=== PATIENT | female | born 1930 | race Caucasian/White ===

== ENCOUNTER 2018-02-16 10:58 | Day surgery (SDC) | payer MEDICARE, BC ==
[2018-02-16] MEDS ORDERED: Phenylephrine 2.5% Ophth Soln 5 ML BOT ONE (11:27)
== END 2018-02-16 12:55 | disposition home or self-care (01) ==
LOC: SDC 10:58
PROVIDERS: ATTEND Ophthalmology
PROC: 085K3ZZ Destruction of Left Lens, Percutaneous Approach (ICD-10-PCS; principal; 2018-02-16)
PROC: 085J3ZZ Destruction of Right Lens, Percutaneous Approach (ICD-10-PCS; 2018-02-16)
DX: H26.493 Other secondary cataract, bilateral (principal); H40.9 Unspecified glaucoma; Z79.899 Other long term (current) drug therapy; Z88.2 Allergy status to sulfonamides

== ENCOUNTER 2019-04-13 12:11 | Outpatient (CLI) | payer MEDICARE, BC ==
--- NOTE | 2019-04-13 12:30 | RAD ---
EXAM: Chest Two Views 04/13/2019 12:27 PM HISTORY: Dyspnea COMPARISON: April 08, 2016 FINDINGS: Heart: Normal in size and contour. Pulmonary vessels: Normal. Costophrenic angles: Clear. Lungs: Severe COPD changes stable Pneumothorax: None. Osseous structures:Stable thoracolumbar scoliosis and moderate multilevel spondylosis. There is diffu se osteopenia Additional findings: None. IMPRESSION: Stable severe COPD
== END 2019-04-13 12:12 | disposition home or self-care (01) ==
LOC: RAD 12:11
PROVIDERS: ATTEND Internal Medicine Pulmonary Disease
DX: R06.00 Dyspnea, unspecified (principal); J44.9 Chronic obstructive pulmonary disease, unspecified
CPT/HCPCS: 71046

== ENCOUNTER 2019-07-13 09:06 | Outpatient (CLI) | payer MEDICARE, BC ==
--- NOTE | 2019-07-13 10:37 | MRI ---
MRI BRAIN WITH AND WITHOUT CONTRAST: DATE: 07/13/2019 HISTORY: 89-year-old female with ICD-10: R 41.3 memory difficulties. COMPARISON: none available TECHNIQUE: Multiplanar, multisequence MRI of the brain performed pre- and post-IV injection of gadolinium based contrast agent. FINDINGS: There is diffuse cerebral parenchymal volume loss resulting in enlarged bifrontal and bitemporal extr a-axial spaces. There is gyriform, irregularly-shaped moderately large region of faint magnetic susceptibility artifa ct involving left upper frontal lobe cortical surface. There is a smaller such region in the far anterior edge of right frontal cortex. No corresponding signal abnormality is identified in any of th e other sequences. This is consistent with superficial hemosiderosis. There are mild chronic ischemic white matter changes in the bilateral cerebral deep white matter. There are moderate chronic ischemic white matter changes in the william. Ventricles are normal in size and configuration. No abnormal intra-axial enhancement, restricted diffusion, moderate sized or large infarction of any age, mass effect, or midline shift. IMPRESSION: 1) age-related diffuse involutional changes, and chronic ischemic white matter changes (mild in the c erebrum and moderate in the william). 2) superficial siderosis along bilateral frontal lobes, left greater than right, is evidence for prio r, remote subarachnoid hemorrhage. 3) no evidence of acute or aggressive process.
[2019-07-13] MEDS ORDERED: Magnevist 469MG/ML 20 ML VIAL ONE (14:00)
== END 2019-07-13 09:07 | disposition home or self-care (01) ==
LOC: BICMRI 09:06
PROVIDERS: ATTEND Nurse Practitioner Acute Care
DX: R41.3 Other amnesia (principal)
CPT/HCPCS: 70553; 82565; A9579

== ENCOUNTER 2021-05-04 12:51 | Outpatient (CLI) | payer MEDICARE, BC | END 2021-05-04 12:52 | disposition home or self-care (01) | LOC: BICRAD 12:51 | PROVIDERS: ATTEND Neurological Surgery | DX: S32.020A Wedge compression fracture of second lumbar vertebra, initial encounter for closed fracture (principal); M47.816 Spondylosis without myelopathy or radiculopathy, lumbar region | CPT/HCPCS: 72100 ==

== ENCOUNTER 2021-05-21 10:44 | Outpatient (CLI) | payer MEDICARE, BC | END 2021-05-21 10:45 | disposition home or self-care (01) | LOC: BICCT 10:44 | PROVIDERS: ATTEND Neurological Surgery | DX: S32.029D Unspecified fracture of second lumbar vertebra, subsequent encounter for fracture with routine healing (principal); M48.061 Spinal stenosis, lumbar region without neurogenic claudication; M47.816 Spondylosis without myelopathy or radiculopathy, lumbar region | CPT/HCPCS: 72131 ==

== ENCOUNTER 2021-08-02 11:04 | Outpatient (CLI) | payer MEDICARE, BC | END 2021-08-02 11:05 | disposition home or self-care (01) | LOC: BICRAD 11:04 | PROVIDERS: ATTEND Neurological Surgery | DX: S32.009A Unspecified fracture of unspecified lumbar vertebra, initial encounter for closed fracture (principal); M47.816 Spondylosis without myelopathy or radiculopathy, lumbar region | CPT/HCPCS: 72100 ==

== ENCOUNTER 2021-10-11 12:47 | Outpatient (CLI) | payer MEDICARE, BC | END 2021-10-11 12:48 | disposition home or self-care (01) | LOC: BICCT 12:47 | PROVIDERS: ATTEND Neurological Surgery | DX: S32.021D Stable burst fracture of second lumbar vertebra, subsequent encounter for fracture with routine healing (principal); M48.061 Spinal stenosis, lumbar region without neurogenic claudication; M51.36 Other intervertebral disc degeneration, lumbar region | CPT/HCPCS: 72131 ==

== ENCOUNTER 2022-01-07 09:40 | Inpatient (IN) | payer MEDICARE, BC ==
[~2022-01-07 09:40] MED LIST: Iopamidol 370 76% 100 ML VIAL ONE
[2022-01-07 10:09] LABS: #Eosinphils 0.1 thou/uL (0.0-0.7); #Lymphocytes 1.3 thou/uL (1.20-3.40); #Monocytes 0.5 thou/uL (0.11-0.59); #Neutrophils 4.4 thou/uL (1.40-6.50); %Basophils 0.2 % (0.0-1.0); %Eosinophils 0.9 % (0.0-10.0); %Lymphocytes 20.4 % (21.0-51.0); %Monocytes 8.6 % (0.0-10.0); %Neutrophils 69.9 % (42.0-75.0); Hemoglobin 13.2 g/dL (12.0-16.0); Mean Corpuscular HGB CONC 32.6 g/dL (32.0-36.0); Mean Corpuscular Hemoglobin 29.9 pg (27.0-31.0); Mean Corpuscular Volume 91.7 fL (78.0-98.0); Mean Platelet Volume 7.1 fL (7.4-10.4); Platelet Count 285 thou/uL (130-400); RBC Distribution Width 12.6 % (11.5-14.5); Red Blood Cell (RBC) Count 4.41 mill/uL (4.20-5.40); White Blood Cell (WBC) Count 6.3 thou/uL (4.8-10.8)
[2022-01-07 10:18] LABS: INR-International Normal Ratio 0.9; PTT 28.1 sec (22.9-36.1); Prothrombin Time 12.7 sec (12.0-14.7)
[2022-01-07 10:30] LABS: ALT (SGPT) 17 U/L (8-55); AST (SGOT) 19 U/L (5-34); Albumin 4.3 g/dL (3.4-4.8); Alkaline Phosphatase 61 U/L (40-110); Anion Gap 15 mmol/L (10-20); BUN (Urea Nitrogen) 17 mg/dL (9.8-20.1); Bilirubin, Total 0.5 mg/dL (0.2-1.2); Calc. Creatinine Clearance 0 mL/min (70-130); Calcium 9.3 mg/dL (7.8-10.44); Carbon Dioxide 23 mmol/L (23-31); Chloride 107 mmol/L (98-107); Globulin 2.5 g/dL (2.4-3.5); Glucose 115 mg/dL (83-110); Potassium 4.3 mmol/L (3.5-5.1); Protein, Total 6.8 g/dL (5.8-8.1); Sodium 141 mmol/L (136-145)
[2022-01-07] MEDS ORDERED: Famotidine/PF 20 mg/2ml Vial ONE (10:38)
[2022-01-07] MEDS ORDERED: diphenhydrAMINE 50 MG/ML VIAL ONE (10:38)
[2022-01-07] MEDS ORDERED: methylPREDNISolone Sod Succ/PF 125 MG/2 ML VIAL ONE (10:38)
[2022-01-07] MEDS ORDERED: Acetaminophen 325 MG TAB PO PRN (11:04)
[2022-01-07] MEDS ORDERED: Ondansetron ODT 4 MG TAB PO PRN (11:04)
[2022-01-07] MEDS ORDERED: Bisacodyl 10 MG SUPP PR PRN (11:04)
[2022-01-07] MEDS ORDERED: Bisacodyl 5 MG TAB PO PRN (11:04)
[2022-01-07] MEDS ORDERED: Calcium Carbonate 500 MG ChewTAB PO PRN (11:04)
[2022-01-07] MEDS ORDERED: Ondansetron PF 4 MG/2 ML Vial IVP PRN (11:04)
[2022-01-07] MEDS ORDERED: Senokot S 8.6-50 MG TAB PO PRN (11:04)
[2022-01-07] MEDS ORDERED: Aspirin 81 mg Enteric Coated Tablet PO SCH (12:45)
[2022-01-07 14:02] VITALS: BMI 18.0
[2022-01-07 14:18] LABS: Hemoglobin A1c 5.6 % (4.0-6.0)
[2022-01-07] MEDS: Atorvastatin Calcium 40 MG TAB PO SCH (20:12)
[2022-01-07 20:33] LABS: SARS-CoV-2 PCR by NAA Not Detected (NotDetected)
[2022-01-07] MEDS: Latanoprost 0.005% Ophth Soln 2.5 ml Bottle EA EYE SCH (22:12)
[2022-01-07] MEDS: Brinzolamide 1% Ophth SUSP 10 ml Bottle EA EYE SCH (22:12)
[2022-01-08 06:12] LABS: #Basophils 0.1 thou/uL (0.0-0.2); #Lymphocytes 1.4 thou/uL (1.20-3.40); #Monocytes 0.8 thou/uL (0.11-0.59); #Neutrophils 6.5 thou/uL (1.40-6.50); %Basophils 0.7 % (0.0-1.0); %Eosinophils 0.1 % (0.0-10.0); %Lymphocytes 15.5 % (21.0-51.0); %Neutrophils 74.6 % (42.0-75.0); Hemoglobin 12.3 g/dL (12.0-16.0); Mean Corpuscular HGB CONC 32.2 g/dL (32.0-36.0); Mean Corpuscular Hemoglobin 30.1 pg (27.0-31.0); Mean Corpuscular Volume 93.7 fL (78.0-98.0); Mean Platelet Volume 7.4 fL (7.4-10.4); Platelet Count 293 thou/uL (130-400); RBC Distribution Width 12.8 % (11.5-14.5); Red Blood Cell (RBC) Count 4.09 mill/uL (4.20-5.40); White Blood Cell (WBC) Count 8.7 thou/uL (4.8-10.8)
[2022-01-08 06:15] LABS: Bacteria/HPF None Seen HPF (None Seen); Bilirubin Negative (Negative); Blood, Urine Negative (Negative); Clarity Clear (Clear); Glucose, Urine (Dipstick) Normal (Negative); Ketone, Urine Trace mg/dL (Negative); Leukocyte 250 Leu/uL (Negative); Nitrite Negative (Negative); Protein, Urine (Dipstick) 20 mg/dL (Neg-Trace); Urobilinogen Normal mg/dL (Less than 2); pH, Urine 5.5 (5.0-9.0)
[2022-01-08 06:16] LABS: Specific Gravity, Urine 1.058 (1.002-1.036)
[2022-01-08 06:17] LABS: Urine Culture Reflex No No
[2022-01-08 06:23] LABS: INR-International Normal Ratio 0.9; PTT 27.9 sec (22.9-36.1); Prothrombin Time 12.7 sec (12.0-14.7)
[2022-01-08 06:44] LABS: ALT (SGPT) 12 U/L (8-55); AST (SGOT) 16 U/L (5-34); Albumin 3.9 g/dL (3.4-4.8); Alkaline Phosphatase 57 U/L (40-110); Anion Gap 13 mmol/L (10-20); BUN (Urea Nitrogen) 19 mg/dL (9.8-20.1); Bilirubin, Direct 0.2 mg/dL (0.1-0.3); Bilirubin, Total 0.7 mg/dL (0.2-1.2); Calc. Creatinine Clearance 35 mL/min (70-130); Carbon Dioxide 24 mmol/L (23-31); Cardiac Risk 2.7 (Less than 4.5); Chloride 106 mmol/L (98-107); Cholesterol 190 mg/dl (< 200 Desired); Glucose 99 mg/dL (83-110); HDL Cholesterol 70 mg/dL (>60 Neg Risk); LDL Cholesterol, Calculated 100 mg/dL; Potassium 3.8 mmol/L (3.5-5.1); Protein, Total 6.2 g/dL (5.8-8.1); Sodium 139 mmol/L (136-145); Triglycerides 100 mg/dL (Less than 150)
[2022-01-08] MEDS: Brinzolamide 1% Ophth SUSP 10 ml Bottle EA EYE SCH ×3 (07:58→20:28)
[2022-01-08] MEDS: Donepezil HCl 5 MG TAB PO SCH (07:58)
[2022-01-08] MEDS: Loratadine 10 MG TAB PO SCH (07:59)
[2022-01-08] MEDS ORDERED: Aspirin 81 mg Enteric Coated Tablet PO SCH (09:00)
[2022-01-08] MEDS: Atorvastatin Calcium 40 MG TAB PO SCH (20:28)
[2022-01-08] MEDS: Latanoprost 0.005% Ophth Soln 2.5 ml Bottle EA EYE SCH (20:29)
[2022-01-09 05:33] LABS: #Lymphocytes 1.3 thou/uL (1.20-3.40); #Monocytes 0.6 thou/uL (0.11-0.59); #Neutrophils 5.4 thou/uL (1.40-6.50); %Basophils 0.1 % (0.0-1.0); %Eosinophils 0.6 % (0.0-10.0); %Monocytes 8.5 % (0.0-10.0); %Neutrophils 72.8 % (42.0-75.0); Hemoglobin 12.1 g/dL (12.0-16.0); Mean Corpuscular HGB CONC 31.9 g/dL (32.0-36.0); Mean Corpuscular Hemoglobin 29.3 pg (27.0-31.0); Mean Platelet Volume 7.1 fL (7.4-10.4); Platelet Count 300 thou/uL (130-400); RBC Distribution Width 12.7 % (11.5-14.5); Red Blood Cell (RBC) Count 4.12 mill/uL (4.20-5.40); White Blood Cell (WBC) Count 7.4 thou/uL (4.8-10.8)
[2022-01-09 05:54] LABS: Anion Gap 13 mmol/L (10-20); BUN (Urea Nitrogen) 17 mg/dL (9.8-20.1); Calc. Creatinine Clearance 38 mL/min (70-130); Calcium 8.8 mg/dL (7.8-10.44); Carbon Dioxide 23 mmol/L (23-31); Chloride 108 mmol/L (98-107); Glucose 93 mg/dL (83-110); Potassium 3.7 mmol/L (3.5-5.1); Sodium 140 mmol/L (136-145)
[2022-01-09] MEDS: Donepezil HCl 5 MG TAB PO SCH (07:46)
[2022-01-09] MEDS: Loratadine 10 MG TAB PO SCH (07:46)
[2022-01-09] MEDS: Brinzolamide 1% Ophth SUSP 10 ml Bottle EA EYE SCH (07:46)
[2022-01-09 09:37] VITALS: BP 147/63; TEMP 97.9
== END 2022-01-09 10:39 | disposition home or self-care (01) | DRG 65 ==
LOC: ERS 09:40 → NEURO 11:08 → OBSVTOIN 01-08 18:36
PROVIDERS: ADMIT Family Medicine; ATTEND Family Medicine
DX: I60.9 Nontraumatic subarachnoid hemorrhage, unspecified (principal); E44.0 Moderate protein-calorie malnutrition; Z68.1 Body mass index [BMI] 19.9 or less, adult; Z20.822 Contact with and (suspected) exposure to COVID-19; H40.9 Unspecified glaucoma; J44.9 Chronic obstructive pulmonary disease, unspecified; R29.810 Facial weakness; R47.81 Slurred speech; R82.998 Other abnormal findings in urine; J40 Bronchitis, not specified as acute or chronic; F03.90 Unspecified dementia, unspecified severity, without behavioral disturbance, psychotic disturbance, mood disturbance, and anxiety; Z88.2 Allergy status to sulfonamides; Z79.899 Other long term (current) drug therapy; Z90.49 Acquired absence of other specified parts of digestive tract; Z79.52 Long term (current) use of systemic steroids; Z91.041 Radiographic dye allergy status
CPT/HCPCS: 36415; 36416; 70450; 70496; 70498; 70551; 80048; 80053; 80061; 80076; 81001; 83036; 84443; 84484; 85025; 85610; 85730; 86850; 86900; 86901; 93005; 93306; 96374; 96375; G0378; J1200; J2930; Q9967; S0028; U0003; U0005

== ENCOUNTER 2022-02-20 12:15 | Outpatient (CLI) | payer MEDICARE, BC | END 2022-02-20 12:16 | disposition home or self-care (01) | LOC: BICCT 12:15 | PROVIDERS: ATTEND Neurological Surgery | DX: I61.9 Nontraumatic intracerebral hemorrhage, unspecified (principal) | CPT/HCPCS: 70450 ==